=== PATIENT | female | born 1945 | race Caucasian/White ===

== ENCOUNTER 2019-09-24 09:30 | Outpatient (CLI) | payer MEDICARE, OTHER | END 2019-09-24 23:59 | disposition home or self-care (01) | LOC: COV 09:30 | PROVIDERS: ATTEND Family Medicine | DX: R53.83 Other fatigue (principal); J02.9 Acute pharyngitis, unspecified | CPT/HCPCS: 81599 ==

== ENCOUNTER 2020-04-22 17:32 | Outpatient (CLI) | payer MEDICARE, OTHER | END 2020-04-22 17:33 | disposition home or self-care (01) | LOC: COV 17:32 | PROVIDERS: ATTEND Family Medicine | DX: R05 Cough (principal); R53.83 Other fatigue; R68.83 Chills (without fever); J34.89 Other specified disorders of nose and nasal sinuses; Z20.828 Contact with and (suspected) exposure to other viral communicable diseases ==

== ENCOUNTER 2020-09-14 08:00 | Outpatient (CLI) | payer MEDICARE, OTHER | END 2020-09-14 23:59 | disposition home or self-care (01) | LOC: LAB.R 08:00 | PROVIDERS: ATTEND Family Medicine | DX: C92.90 Myeloid leukemia, unspecified, not having achieved remission (principal); D61.818 Other pancytopenia | CPT/HCPCS: 86900; 86901 ==